=== PATIENT | male | born 1930 | race Caucasian/White ===

== ENCOUNTER 2018-12-31 10:54 | Inpatient (IN) | payer MEDICARE, BC ==
[2018-12-31] MEDS ORDERED: IV NS 0.9% 500 ML BAG IV ONE (11:30)
[2018-12-31] MEDS ORDERED: [UNRECOGNIZED DRUG - CODE] PO (12:09)
[2018-12-31] MEDS ORDERED: VITA56.7 TP (12:09)
[2018-12-31] MEDS ORDERED: POTA8TAB8 PO (12:09)
[2018-12-31] MEDS ORDERED: KETO120S3 (12:09)
[2018-12-31] MEDS ORDERED: ALLA266C2 TP (12:09)
[2018-12-31] MEDS ORDERED: OMEP20CA11 PO (12:09)
[2018-12-31] MEDS ORDERED: ACET-868 PO (12:09)
[2018-12-31] MEDS ORDERED: ATOR10TA PO (12:09)
[2018-12-31] MEDS ORDERED: FURO40TA5 PO (12:09)
[2018-12-31] MEDS ORDERED: DOCU-141 PO (12:09)
[2018-12-31] MEDS ORDERED: VANCOMYCIN 1 GM in IV D5W 250 ML IV ONE (13:30)
[2018-12-31] MEDS ORDERED: DOCUSATE SODIUM 100 MG CAPSULE PO PRN (14:30)
[2018-12-31] MEDS ORDERED: ACETAMINOPHEN 325 MG TABLET PO PRN ×2 (14:30→15:00)
[2018-12-31] MEDS ORDERED: ENSURE ENLIVE CHOC 237 ML CAN PO PRN (14:30)
[2018-12-31] MEDS ORDERED: HYDROCODONE/APAP 5/325MG 1 EACH TABLET PO PRN (15:00)
[2018-12-31] MEDS ORDERED: MAGNESIUM HYDROXIDE 30 ML UDC PO PRN (15:00)
[2018-12-31] MEDS ORDERED: MAG HYDROX/AL HYDROX/SIMETH 30 ML UDC PO PRN (15:00)
[2018-12-31] MEDS ORDERED: ONDANSETRON HCL/PF 4 MG/2 ML VIAL IVP PRN (15:00)
[2018-12-31] MEDS ORDERED: ZOLPIDEM TARTRATE 5 MG TABLET PO PRN (15:00)
[2018-12-31] MEDS ORDERED: FEE PK DOSING 1 MIN EA MC ONE (15:37)
[2018-12-31] MEDS: FUROSEMIDE 40 MG/4 ML VIAL IV SCH (16:36)
[2018-12-31] MEDS: CEFTRIAXONE 1 G in IV D5W 50 ML IV SCH (16:39)
[2018-12-31] MEDS: Z GUARD REMEDY 2 OZ OINT TP SCH (18:12)
[2018-12-31] MEDS: VITAMINS A AND D 56.7 GM TUBE TP SCH (18:13)
[2018-12-31] MEDS: ATORVASTATIN 10 MG TABLET PO SCH (21:29)
[2019-01-01] MEDS: VANCOMYCIN 1 GM in IV D5W 250 ML IV SCH (06:34)
[2019-01-01] MEDS: FUROSEMIDE 40 MG/4 ML VIAL IV SCH (09:35)
[2019-01-01] MEDS: Z GUARD REMEDY 2 OZ OINT TP SCH ×2 (09:36→17:45)
[2019-01-01] MEDS: VITAMINS A AND D 56.7 GM TUBE TP SCH ×2 (09:36→17:45)
[2019-01-01] MEDS: Magnesium 1GM/D5W 100ML PREMIX 100 ML IV SCH ×2 (11:49→12:43)
[2019-01-01] MEDS: CEFTRIAXONE 1 G in IV D5W 50 ML IV SCH (17:42)
[2019-01-01] MEDS: VITAMINS A AND D 56.7 GM TUBE TP PRN (17:44)
[2019-01-01] MEDS: HYDROGEL DRESSING 90 GM TUBE TP SCH (17:45)
[2019-01-01] MEDS: GABAPENTIN 100 MG CAPSULE PO SCH (17:45)
[2019-01-01] MEDS: LACTOBACILLUS RHAMNOSUS GG 1 EACH CAP.SPRINK PO SCH (17:45)
[2019-01-01] MEDS: ATORVASTATIN 10 MG TABLET PO SCH (21:04)
[2019-01-02] MEDS: VANCOMYCIN 1 GM in IV D5W 250 ML IV SCH ×2 (00:08→20:03)
[2019-01-02] MEDS: FUROSEMIDE 40 MG/4 ML VIAL IV SCH (08:39)
[2019-01-02] MEDS: LACTOBACILLUS RHAMNOSUS GG 1 EACH CAP.SPRINK PO SCH ×2 (08:39→16:40)
[2019-01-02] MEDS: GABAPENTIN 100 MG CAPSULE PO SCH ×3 (08:39→16:40)
[2019-01-02] MEDS: Z GUARD REMEDY 2 OZ OINT TP SCH ×2 (08:40→16:41)
[2019-01-02] MEDS: VITAMINS A AND D 56.7 GM TUBE TP SCH ×2 (08:40→16:42)
[2019-01-02] MEDS: HYDROGEL DRESSING 90 GM TUBE TP SCH (08:40)
[2019-01-02] MEDS: CEFTRIAXONE 1 G in IV D5W 50 ML IV SCH (16:40)
[2019-01-02] MEDS: VITAMINS A AND D 56.7 GM TUBE TP PRN (16:42)
[2019-01-02] MEDS: ATORVASTATIN 10 MG TABLET PO SCH (21:36)
[2019-01-03] MEDS: VITAMINS A AND D 56.7 GM TUBE TP SCH ×2 (09:00→17:00)
[2019-01-03] MEDS: Z GUARD REMEDY 2 OZ OINT TP SCH ×2 (09:00→17:00)
[2019-01-03] MEDS: FUROSEMIDE 40 MG/4 ML VIAL IV SCH (09:40)
[2019-01-03] MEDS: GABAPENTIN 100 MG CAPSULE PO SCH ×3 (09:40→17:42)
[2019-01-03] MEDS: LACTOBACILLUS RHAMNOSUS GG 1 EACH CAP.SPRINK PO SCH ×2 (09:40→17:42)
[2019-01-03] MEDS: HYDROGEL DRESSING 90 GM TUBE TP SCH ×2 (09:41→18:17)
[2019-01-03] MEDS: Z GUARD REMEDY 2 OZ OINT TP PRN ×2 (09:42→18:17)
[2019-01-03] MEDS: VITAMINS A AND D 56.7 GM TUBE TP PRN ×2 (09:42→18:17)
[2019-01-03] MEDS: VANCOMYCIN 1 GM in IV D5W 250 ML IV SCH (11:55)
[2019-01-03] MEDS: CEFTRIAXONE 1 G in IV D5W 50 ML IV SCH (17:41)
[2019-01-03] MEDS: ATORVASTATIN 10 MG TABLET PO SCH (21:16)
[2019-01-04] MEDS: VITAMINS A AND D 56.7 GM TUBE TP SCH ×2 (09:00→17:15)
[2019-01-04] MEDS: Z GUARD REMEDY 2 OZ OINT TP SCH ×2 (09:00→17:00)
[2019-01-04] MEDS: VANCOMYCIN 1 GM in IV D5W 250 ML IV SCH ×2 (10:13→23:13)
[2019-01-04] MEDS: FUROSEMIDE 40 MG/4 ML VIAL IV SCH (10:16)
[2019-01-04] MEDS: LACTOBACILLUS RHAMNOSUS GG 1 EACH CAP.SPRINK PO SCH ×2 (10:16→17:14)
[2019-01-04] MEDS: GABAPENTIN 100 MG CAPSULE PO SCH ×3 (10:16→17:14)
[2019-01-04] MEDS: VITAMINS A AND D 56.7 GM TUBE TP PRN (10:20)
[2019-01-04] MEDS: Z GUARD REMEDY 2 OZ OINT TP PRN ×2 (10:20→17:15)
[2019-01-04] MEDS: HYDROGEL DRESSING 90 GM TUBE TP SCH (10:21)
[2019-01-04] MEDS: CEFTRIAXONE 1 G in IV D5W 50 ML IV SCH (17:14)
[2019-01-04] MEDS: ATORVASTATIN 10 MG TABLET PO SCH (21:25)
[2019-01-05] MEDS: Z GUARD REMEDY 2 OZ OINT TP SCH ×2 (09:00→17:00)
[2019-01-05] MEDS: LACTOBACILLUS RHAMNOSUS GG 1 EACH CAP.SPRINK PO SCH ×2 (09:50→17:52)
[2019-01-05] MEDS: FUROSEMIDE 40 MG/4 ML VIAL IV SCH (09:50)
[2019-01-05] MEDS: GABAPENTIN 100 MG CAPSULE PO SCH (09:50)
[2019-01-05] MEDS: Z GUARD REMEDY 2 OZ OINT TP PRN ×2 (10:05→17:56)
[2019-01-05] MEDS: VITAMINS A AND D 56.7 GM TUBE TP SCH ×2 (10:06→17:00)
[2019-01-05] MEDS ORDERED: HYDROCORTISONE 1% CREAM 28.35 GM TUBE TP STA (12:43)
[2019-01-05] MEDS: CEFTRIAXONE 1 G in IV D5W 50 ML IV SCH (17:54)
[2019-01-05] MEDS: VANCOMYCIN 1 GM in IV D5W 250 ML IV SCH (17:55)
[2019-01-05] MEDS: VITAMINS A AND D 56.7 GM TUBE TP PRN (17:56)
[2019-01-05] MEDS: ATORVASTATIN 10 MG TABLET PO SCH (21:59)
[2019-01-06] MEDS: FUROSEMIDE 40 MG/4 ML VIAL IV SCH (09:07)
[2019-01-06] MEDS: LACTOBACILLUS RHAMNOSUS GG 1 EACH CAP.SPRINK PO SCH (09:07)
[2019-01-06] MEDS: VITAMINS A AND D 56.7 GM TUBE TP SCH (09:08)
[2019-01-06] MEDS: HYDROGEL DRESSING 90 GM TUBE TP SCH (09:09)
[2019-01-06] MEDS: Z GUARD REMEDY 2 OZ OINT TP SCH (09:10)
[2019-01-06] MEDS ORDERED: POTASSIUM CHLORIDE 20 MEQ TAB.PRT.SR PO SCH (11:30)
[2019-01-06] MEDS: CEFTRIAXONE 1 G in IV D5W 50 ML IV SCH (15:15)
== END 2019-01-06 16:39 | DRG 570 ==
DX: L03.115 Cellulitis of right lower limb (principal); L89.323 Pressure ulcer of left buttock, stage 3; L89.313 Pressure ulcer of right buttock, stage 3; N17.0 Acute kidney failure with tubular necrosis; L03.116 Cellulitis of left lower limb; K21.9 Gastro-esophageal reflux disease without esophagitis; D63.8 Anemia in other chronic diseases classified elsewhere; I87.2 Venous insufficiency (chronic) (peripheral); F03.90 Unspecified dementia, unspecified severity, without behavioral disturbance, psychotic disturbance, mood disturbance, and anxiety; E78.5 Hyperlipidemia, unspecified; I10 Essential (primary) hypertension; L30.9 Dermatitis, unspecified; L85.3 Xerosis cutis